=== PATIENT | male | born 1985 ===

== ENCOUNTER 2016-08-17 11:47 | Emergency (ER) | payer MEDICAID ==
[2016-08-17 11:55] VITALS: BP 132/80; PULSE 60; RESP 20; TEMP 97.8; O2SAT 100
--- NOTE | 2016-08-17 12:45 | ED PDOC ---
HPI: Back Time Seen by Provider: 08/17/16 12:19 Chief Complaint (Nursing): Back Pain Chief Complaint (Provider): Low back pain x 3 days History Per: Patient History/Exam Limitations: no limitations Onset/Duration Of Symptoms: Days Current Symptoms Are (Timing): Still Present Full Body Front + Back: 1 - Pain Quality Of Discomfort: Aching (Intermittent during the day ), Stabbing (In the morning ) Severity: Moderate Pain Scale Rating Of: 5 Previous Symptoms: None Additional Complaint(s): Pt denies new bed/mattress. Pt states he has not had any new activities or lifting. No change in weight. Pt states he did not have any in the past. Pt did not take anything for pain. No fever/chills. No bladder or bowel incontinence. No numbness/tingling. Past Medical History Reviewed: Historical Data, Nursing Documentation, Vital Signs Vital Signs: Last Vital Signs Temp 97.8 F 08/17/16 11:54 Pulse 60 08/17/16 11:54 Resp 20 08/17/16 11:54 BP 132/80 08/17/16 11:54 Pulse Ox 100 08/17/16 11:54 - Medical History PMH: No Chronic Diseases - Surgical History Surgical History: No Surg Hx - Family History Family History: States: No Known Family Hx - Living Arrangements Living Arrangements: With Family - Social History Current smoker - smoking cessation education provided: No Alcohol: Occasional Drugs: Denies - Immunization History Hx Tetanus Toxoid Vaccination: No Hx Influenza Vaccination: No Hx Pneumococcal Vaccination: No - Allergies Allergies/Adverse Reactions: Allergies Allergy/AdvReac Type Severity Reaction Status Date / Time No Known Allergies Allergy Verified 08/17/16 12:20 Review of Systems ROS Statement: Except As Marked, All Systems Reviewed And Found Negative Musculoskeletal: Positive for: Back Pain Physical Exam - Reviewed Nursing Documentation Reviewed: Yes Vital Signs Reviewed: Yes - Physical Exam Appears: Positive for: Well, Non-toxic, No Acute Distress Head Exam: Positive for: ATRAUMATIC, NORMAL INSPECTION, NORMOCEPHALIC Skin: Positive for: Normal Color, Warm, DRY Eye Exam: Positive for: Normal appearance ENT: Positive for: Normal ENT Inspection Neck: Positive for: Normal, Painless ROM Cardiovascular/Chest: Positive for: Regular Rate, Rhythm Respiratory: Positive for: Normal Breath Sounds. Negative for: Accessory Muscle Use Back: Positive for: Normal Inspection, Vertebral Tenderness. Negative for: L CVA Tenderness, R CVA Tenderness Extremity: Positive for: Normal ROM. Negative for: Tenderness Neurologic/Psych: Positive for: Alert, Oriented - ECG O2 Sat by Pulse Oximetry: 100 Medical Decision Making Medical Decision Making: Pt reports feeling better after motrin. X-ray normal. Disposition - Clinical Impression Clinical Impression: Back pain - Patient ED Disposition Is Patient to be Admitted: No Counseled Patient/Family Regarding: Diagnosis, Need For Followup - Disposition Referrals: [facility] [Outside] Disposition: Routine/Home Disposition Time: 14:02 Condition: GOOD Additional Instructions: Ibuprofen for pain. Instructions: Back Pain (ED) Print Language: THAI
--- NOTE | 2016-08-17 14:28 | RAD ---
PROCEDURE: Radiographs of the Lumbar Spine. HISTORY: Low back pain 3 days, worse in am, (+) midline ten COMPARISON: None available. FINDINGS: BONES: Alignment appears satisfactory. No listhesis. No acute displaced fracture identified. DISC SPACES: Unremarkable. OTHER FINDINGS: Punctate radiopaque density projects over the right T12 rib on the AP view, presumably artifact. IMPRESSION: No acute displaced fracture or subluxation identified
== END 2016-08-17 14:10 | disposition home or self-care (01) ==
LOC: H.ER 11:47
DX: M54.9 Dorsalgia, unspecified (principal)